=== PATIENT | male | born 1985 | race Caucasian/White ===

== ENCOUNTER 2021-03-18 19:57 | Emergency (ER) | payer OTHER ==
[~2021-03-18] VITALS: Ht 170.2 cm; Wt 77.7 kg
--- NOTE | 2021-03-18 20:12 | NUR ---
Pt ambulatory with steady gait to room from triage and is changing into gown now.
--- NOTE | 2021-03-18 20:15 | NUR ---
Pt applied his own ice pack to L chest area. Warm blanket provided, call light in reach, and father at bedside with pt. Placed on continuous sat monitor while awaiting MD petersen.
[2021-03-18] MEDS ORDERED: HYDROcodone/APAP 5/325 TABLET ONE (20:56)
[2021-03-18] MEDS ORDERED: HYDROcodone/APAP 5/325 TABLET PO ONE (21:00)
--- NOTE | 2021-03-18 21:03 | NUR ---
Dr. Kim asked for pain medication order while pt awaits being seen by PA or for eval. Order received and pt medicated. Pt then assisted to restroom and new ice pack provided per pt request while waiting. Sat remain 98% on RA at this time.
--- NOTE | 2021-03-18 21:06 | NUR ---
MD at bedside for exam now.
--- NOTE | 2021-03-18 21:15 | NUR ---
Report given to TERESA Panda and care transferred.
[2021-03-18] MEDS ORDERED: DIPH,PERTUSS(ACELL),TET VAC/PF 0.5 ML IM-VACC ONE (21:30)
[2021-03-18 21:47] LABS: BASOPHILS % (AUTO) 0 % (0-1); EOSINOPHILS % (AUTO) 2 % (1-7); LYMPHOCYTES % (AUTO) 23 % (22-44); MEAN CORPUSCULAR HEMOGLOBIN 32.3 pg (27.5-34.5); MEAN CORPUSCULAR HGB CONC 35.1 g/dL (33.2-36.2); MEAN PLATELET VOLUME 9.2 fL (7.4-10.4); MONOCYTES % (AUTO) 6 % (2-9); NEUTROPHILS % (AUTO) 69 % (42-75); PLATELET COUNT 215 x10^3/uL (130-400); RED CELL DISTRIBUTION WIDTH 12.9 % (9.4-14.8)
[2021-03-18 21:53] LABS: ALANINE AMINOTRANSFERASE 39 U/L (12-78); ANION GAP 2 mmol/L (5-15); CHLORIDE 106 mmol/L (98-107); CREATININE 1.08 mg/dL (0.7-1.3)
[2021-03-18 21:55] LABS: ALKALINE PHOSPHATASE 75 U/L (45-117); BILIRUBIN,TOTAL 0.2 mg/dL (0.2-1.0)
[2021-03-18 22:55] VITALS: BP 131/80
--- NOTE | 2021-03-18 23:04 | NUR ---
PT VSS AND UPDATED IN EMR. PT D/C WITH D/C SUMMARY AND SCRIPT SENT TO PHARMACY. CONTROLLED SUBSTANCE FORM SIGNED AND PLACED WITH CHART. PT PROVIDED INCENTIVE SPIROMETER AND ABLE TO REACH 2500 ON IS. PT QUESTIONS ANSWERED. PT AMBULATES TO REGISTRATION DESK WITH STEADY GAIT FOR D/C HOME WITH FATHER. PT DENIES ANY OTHER NEEDS PERTAINING TO THIS VISIT.
== END 2021-03-18 23:08 | disposition home or self-care (01) ==
LOC: ED 22:04
DX: S22.32XA Fracture of one rib, left side, initial encounter for closed fracture (principal); X58.XXXA Exposure to other specified factors, initial encounter; Y93.89 Activity, other specified; Y92.410 Unspecified street and highway as the place of occurrence of the external cause; Y99.8 Other external cause status
CPT/HCPCS: 36415; 71046; 80053; 83690; 85025; 99284